=== PATIENT | female | born 1995 | race Two or more races ===

== ENCOUNTER 2021-08-06 02:18 | Emergency (ER) | payer OTHER ==
[~2021-08-06] VITALS: Ht 162.6 cm; Wt 79.4 kg
[2021-08-06 03:16] VITALS: BP 148/88
[2021-08-06] MEDS ORDERED: LORAZEPAM 1 MG TABLET ONE (03:20)
[2021-08-06] MEDS ORDERED: LORAZEPAM 1 MG TABLET PO ONE (03:30)
== END 2021-08-06 03:43 ==
LOC: ER 02:22
DX: F41.9 Anxiety disorder, unspecified (principal); F19.10 Other psychoactive substance abuse, uncomplicated; F17.200 Nicotine dependence, unspecified, uncomplicated; Z60.2 Problems related to living alone